=== PATIENT | female | born 1965 | race Caucasian/White ===

== ENCOUNTER 2021-12-07 14:26 | Emergency (ER) | payer SELFPAY ==
[~2021-12-07] VITALS: Ht 170.2 cm; Wt 78.2 kg
[2021-12-07 14:29] VITALS: BP 145/104
[2021-12-07] MEDS ORDERED: ketorolac trometh inj. 60 MG/2 ML VIAL IM ONE (15:25)
[2021-12-07] MEDS ORDERED: IBUP-1986 PO (16:36)
== END 2021-12-07 16:55 | disposition home or self-care (01) ==
LOC: ER 14:27
DX: Z04.3 Encounter for examination and observation following other accident (principal); Z88.8 Allergy status to other drugs, medicaments and biological substances; W19.XXXA Unspecified fall, initial encounter; Y93.89 Activity, other specified; Y92.89 Other specified places as the place of occurrence of the external cause; Y99.8 Other external cause status
CPT/HCPCS: 29505; 73030; 73564; 96372; 99284; J1885; A6449